=== PATIENT | female | born 1985 | race Caucasian/White ===

== ENCOUNTER 2020-08-14 09:26 | Outpatient (REF) | payer OTHER, SELFPAY ==
[2020-08-14 10:11] LABS: Estimated Average Glucose 249 mg/dL; Hemoglobin A1c % 10.3 %
[2020-08-14 10:24] LABS: Creatinine Urine 191.76 mg/dL; Microalbum/Creatinine Ratio Ur 141.8 ug/mg cr
[2020-08-14 10:26] LABS: Alanine Aminotransferase 34 U/L (0-31); Alkaline Phosphatase 63 U/L (39-117); Anion Gap 13 (12-20); Aspartate Amino Transferase 16 U/L (5-31); Bilirubin Total 0.6 mg/dL (0.0-1.0); Blood Urea Nitrogen 13 mg/dL (9-16); Calcium 8.6 mg/dL (8.4-10.2); Carbon Dioxide 22 mmol/L (22-29); Chloride 107 mmol/L (96-108); Cholesterol 170 mg/dL; Estimated Glomerular Filt Rate > 60; Glucose Fasting 263 mg/dL (60-99); HDL Cholesterol 51 mg/dL; LDL Cholesterol Calculated 104 mg/dl; Potassium 4.2 mmol/L (3.3-5.1); Sodium 138 mmol/L (135-145); Total Protein 6.6 g/dL (6.5-8.0); Triglycerides 78 mg/dL
[2020-08-14 10:49] LABS: Thyroid Stimulating Hormone 0.54 uIU/mL (0.32-4.0)
== END 2020-08-14 09:27 | disposition home or self-care (01) ==
LOC: HO.LAB 09:26
PROVIDERS: Visit Provider Internal Medicine
DX: E11.9 Type 2 diabetes mellitus without complications (principal); E03.9 Hypothyroidism, unspecified
CPT/HCPCS: 36415; 80053; 80061; 82043; 83036; 84443

== ENCOUNTER 2021-08-09 08:21 | Outpatient (REF) | payer OTHER, SELFPAY ==
[2021-08-09 09:43] LABS: MANUAL DIFF FLAG NO
[2021-08-09 09:58] LABS: Basophils Percent Auto 0.4 % (0-2); Eosinophils Absolute Auto 0.2 X10*3/uL (0.0-0.4); Hemoglobin 14.1 g/dl (12.0-16.0); Imm Gran Abs Auto 0.01 X10*3/uL (0.00-0.03); Imm Gran Pct Auto 0.2 % (0.0-0.4); Lymphocytes Absolute Auto 1.7 X10*3/uL (1.2-4.9); Lymphocytes Percent Auto 37.5 % (20-40); Mean Corpuscular HGB Conc 34.4 g/dl (31.0-35.0); Mean Corpuscular Hemoglobin 30.2 pg (27.0-33.0); Mean Corpuscular Volume 87.8 fL (80.0-98.0); Mean Platelet Volume 9.9 fL (9.4-12.3); Monocytes Absolute Auto 0.4 X10*3/uL (0.1-1.2); Monocytes Percent Auto 7.8 % (2-11); Neutrophils Absolute Auto 2.3 x10*3/uL (2.0-8.3); Neutrophils Percent Auto 49.1 % (45-73); Platelet Count 239 X10*3/uL (160-400); Red Blood Count 4.67 X10*6/uL (4.20-5.50); Red Cell Distribution Width 13.4 % (11.0-16.0); White Blood Count 4.6 X10*3/uL (4.8-10.8)
[2021-08-09 10:09] LABS: Estimated Average Glucose 217 mg/dL; Hemoglobin A1c % 9.2 %
[2021-08-09 10:26] LABS: Alanine Aminotransferase 42 U/L (0-31); Albumin Level 3.9 g/dL (3.5-5.0); Alkaline Phosphatase 62 U/L (39-117); Anion Gap 11 (12-20); Aspartate Amino Transferase 24 U/L (5-31); Bilirubin Total 0.4 mg/dL (0.0-1.0); Blood Urea Nitrogen 11 mg/dL (9-16); Carbon Dioxide 22 mmol/L (22-29); Chloride 108 mmol/L (96-108); Cholesterol 173 mg/dL; Estimated Glomerular Filt Rate > 60; Glucose Random 252 mg/dL (60-115); HDL Cholesterol 51 mg/dL; LDL Cholesterol Calculated 108 mg/dl; Potassium 4.4 mmol/L (3.3-5.1); Sodium 137 mmol/L (135-145); Triglycerides 74 mg/dL
[2021-08-09 10:49] LABS: Thyroid Stimulating Hormone 0.85 uIU/mL (0.32-4.0)
[2021-08-13 13:46] LABS: Vitamin D 25-OH, D2 <4 ng/mL; Vitamin D 25-OH, D3 8 ng/mL; Vitamin D 25-OH, Total 8 ng/mL (30-100)
== END 2021-08-09 08:22 | disposition home or self-care (01) ==
LOC: HO.LAB 08:21
PROVIDERS: PCP Hospitalist; Visit Provider Physician Assistant
DX: K76.0 Fatty (change of) liver, not elsewhere classified (principal); K64.9 Unspecified hemorrhoids; K62.5 Hemorrhage of anus and rectum; K59.09 Other constipation; E11.9 Type 2 diabetes mellitus without complications
CPT/HCPCS: 36415; 80053; 80061; 82306; 83036; 84443; 85025

== ENCOUNTER → 2021-08-10 16:14 | Outpatient (BNVA) | payer OTHER, SELFPAY | PROVIDERS: PCP Hospitalist; Referring Provider Physician Assistant; Visit Provider Surgery | DX: K64.9 Unspecified hemorrhoids (principal) | CPT/HCPCS: 46600 ==

== ENCOUNTER 2021-08-12 11:24 | Outpatient (REF) | payer OTHER, SELFPAY | END 2021-08-12 11:25 | disposition home or self-care (01) | LOC: HO.LNP 11:24 | PROVIDERS: Visit Provider Physician Assistant | DX: A04.8 Other specified bacterial intestinal infections (principal) | CPT/HCPCS: 87338 ==

== ENCOUNTER 2021-09-27 05:57 | Day surgery (SDC) | payer OTHER, SELFPAY ==
--- NOTE | 2021-09-26 08:13 | HO.ANESPROP2 ---
Documented by User: Cheyenne Brian NP 09/26/21 08:14 HPI - Anesthesia Eval Consult details Narrative: 36yo F for EUA, Hemorrhoidectomy PMFSH Active Problems Active Problems: All Active Problems (Updated 09/01/21 @ 08:51 by Tenisha Burns NP) Fungal rash of torso (Acute) Elevated BP without diagnosis of hypertension (Acute) Normal physical exam (Acute) Bleeding hemorrhoids (Acute) Hemorrhoids (Acute) Rectal bleeding (Acute) Diabetes mellitus (Acute) Past Medical History Medical History Bleeding hemorrhoids delivery delivered Diabetes mellitus Hemorrhoids Rectal bleeding Family History Family History Mother Diabetes Hypertension Chronic asthma Father Diabetes Thyroid disease Surgical History Surgical History History of tubal ligation Social History Social History Alcohol intake: current Alcohol intake frequency: holidays/special occasions only Patient Tobacco Use Status: Never used Tobacco e-Cigarette/Vaping Use: Never Used Use of substances other than those prescribed or required for medical reasons: No Are you DNR?: No Advance Directives: No Advance Directives Information Provided: Yes Patient : No service: No Current occupational status: employed Current occupation: [employer] Current occupational exposures/hazards: No Cognitive needs: No Hearing needs: No Vision needs: No Meds Allergies Allergy/AdvReac Type Severity Reaction Status Date / Time sumatriptan Allergy Intermediate palpations Verified 09/01/21 08:13 and light headedness a rectal cream (fissure) she Allergy Severe tightness Uncoded 09/01/21 08:13 s in chest Home Medications Medication Instructions Recorded Confirmed Last Taken Type lancets 28 gauge #100 ea 08/11/20 08/10/21 Unknown History Exam Exam Date and Time: September 26, [id number] Pertinent Lab Results Pertinent Lab Results: Laboratory Tests 08/09/21 08/09/21 09:42 09:42 WBC 4.6 L Hgb 14.1 Hct 41.0 Plt Count 239 Sodium 137 Potassium 4.4 Chloride 108 Carbon Dioxide 22 BUN 11 Creatinine 0.71 Assessment and Plan Assessment Anesthesia Assessment: Chart Reviewed Documented by User: Jason Montana MD 09/27/21 07:25 PMF Past Medical History Medical History Bleeding hemorrhoids delivery delivered Diabetes mellitus Hemorrhoids Rectal bleeding Patient : No Family History Family History Mother Diabetes Hypertension Chronic asthma Father Diabetes Thyroid disease Family history of problems with anesthesia: No Surgical History Surgical History History of tubal ligation History of Problems with Anesthesia: No Social History Social History Alcohol intake: current Alcohol intake frequency: holidays/special occasions only Patient Tobacco Use Status: Never used Tobacco e-Cigarette/Vaping Use: Never Used Use of substances other than those prescribed or required for medical reasons: No Are you DNR?: No Advance Directives: No Advance Directives Information Provided: Yes Patient : No service: No Current occupational status: employed Current occupation: [employer] Current occupational exposures/hazards: No Cognitive needs: No Hearing needs: No Vision needs: No Meds Allergies Allergy/AdvReac Type Severity Reaction Status Date / Time sumatriptan Allergy Intermediate palpations Verified 09/01/21 08:13 and light headedness a rectal cream (fissure) she Allergy Severe tightness Uncoded 09/01/21 08:13 s in chest Home Medications Medication Instructions Recorded Confirmed Last Taken Type lancets 28 gauge #100 ea 08/11/20 08/10/21 Unknown History Exam Airway Mallampati Class: I TM Dist: >3cm Neck ROM: Full Loose/Missing/Broken Teeth: No Heart: ok Lungs: ok Assessment and Plan Final Anesthetic Review Family History of Problems with Anesthesia: No History of Problems with Anesthesia: No ASA Class: II Final Preanesthetic Review: No Changes in Pt Med Stat, Meds/Allgs Chart Reviewed, Consent Obtained/Reviewed and Anes Risks/Benef Reviewed Patient Risk: Intermediate Procedure Risk: Intermediate Anesthetic Plan Anesthetic Plan: GA and Agree w/ Assess. and Plan Disposition: Standard PACU
[2021-09-27] VITALS (10 sets, daily range): BP systolic 144–179; BP diastolic 92–128; PULSE 73–95; RESP 16–20; TEMP 36.3–36.4; O2SAT 96–100; BMI 39.9
[2021-09-27 06:29] LABS: Glucose, Whole Blood 253 mg/dL (60-115)
[2021-09-27] MEDS: Lactated Ringers 1,000 ML 100 ML IVCONT (06:43)
--- NOTE | 2021-09-27 07:17 | MHC.SHP ---
Pre-Procedural Eval Section A Date of Service: 09/27/21 Section B Chief Complaint: Bleeding hemorrhoids Details of Present Illness: has has bleeding hemorrhoids for many years Relevant Family History (Specify if Yes): No Relevant Social History: None Present Medications: see Short Stay Collaborative assessment Medical History: No relevant PMH History of Previous Operations: No relevant previous surgery Allergies: Allergies Allergy/AdvReac Type Severity Reaction Status Date / Time sumatriptan Allergy Intermediate palpations Verified 09/01/21 08:13 and light headedness a rectal cream (fissure) she Allergy Severe tightness Uncoded 09/01/21 08:13 s in chest Review of Systems Sugical H&P ROS: Negative: Constitution, Cardiovascular, Respiratory, Neurological, Psychiatric, Hem-Onc, Allergic/Immunologic, Gastrointestinal, Genitourinary, Musculoskeletal, Integumentary, Endocrine and Eyes/Ears/Nose/Throat Exam Surgical H&P Exam: Normal: HEENT, Normal: Heart, Normal: Lungs, Normal: Extremities, Normal: Abdomen, Normal: Skin and Normal: Neurological Exam Comment: has bulky internal and external hemorrhoids, left and right Plan Diagnosis/Plan: Unchanged I have reviewed the history and physical and performed a pertinent physical examination on my patient. No changes have occurred unless specified.
--- NOTE | 2021-09-27 08:25 | W.PM.OPN ---
Operative Note Operative Note Date of Service: 09/27/21 Narrative: Preop diagnosis: bleeding hemorrhoids, internal external Postop diagnosis: The same Procedure: Exam under anesthesia, hemorrhoidectomy x2 columns Surgeon: Lexx Schaefer MD Asst: ASHLI Peterson student the patient is a 36-year-old female who has had many years of problematic hemorrhoids, with frequent bleeding and pain. Examination in the office showed bulky internal external hemorrhoids on both the left and the right side. She wanted to proceed with hemorrhoidectomy. She understood the technique of the procedure. She was aware of the risks, benefits, and alternatives She was brought to the operating room. She was placed in prone sagar-knife position under general anesthesia via laryngeal mask airway. The buttocks were retracted with wide tape laterally. The perianal areas prepped and draped in the usual sterile fashion. Examination of the anal orifice showed bulky external hemorrhoidal columns on the left and the right side. I inserted the Delilah Cheung retractor. I examined the anal canal circumferentially. Again bulky columns were noted and were mostly a mix of both internal external but mostly external columns. I applied a Calixto grasper at the hemorrhoidal column on the left. I made a itvbmj-lt-psxnw stitch at the pedicle using chromic 3-0. I made an incision around this hemorrhoidal column to the perianal skin using blade 15. I excised this hemorrhoidal column above the plane of sphincters along this incision using Metzenbaum scissors. This was sent as specimen. I closed the incision with a running chromic 3-0 stitch with additional [id number] hemostatic sutures being placed. I then proceeded to retract the hemorrhoidal column on the side with a Calixto grasper. I made a figure of stitch at the pedicle using chromic 3-0 and made incision around this using a blade 15. I excised this hemorrhoidal column above the plane of sphincters using scissors as well along this incision. I closed this incision with a running chromic 3-0 stitch with multiple additional hemostatic sutures being placed as well . Once hemostasis was ensured, I proceeded to then apply a rolled Gelfoam into the anal canal as a packing. I infiltrated the perianal area with Marcaine 0.5% for postop analgesia. She the procedure was then completed The patient tolerated procedure well. There were no complications noted. Initial fine counts of sponges and instruments were correct. Estimated blood loss was about 75 cc . The patient was extubated without difficulty and transferred to the recovery room with stable vital signs. Please note that the patient had other hemorrhoidal columns as well but in view of the risk of stenosis with further hemorrhoidectomy, I had left this smaller hemorrhoid columns in place.
--- NOTE | 2021-09-27 08:31 | W.PM.OPN ---
Operative Note Operative Note Date of Service: 09/27/21 Narrative: Preop diagnosis: Bleeding hemorrhoids, internal external Postop diagnosis the same Procedure: Exam under anesthesia hemorrhoidectomy x2 columns Surgeon: Lexx Schaefer MD Activities Leader : ASHLI Peterson student The patient is a 36 year female with a long history of problematic hemorrhoids with pain and frequent bleeding. She understood the technique of an ectomy. She was ordered risks, benefits, and alternatives She was brought to the operating room and placed in prone sagar-knife position under general anesthesia via laryngeal mask airway. The buttocks were retracted with wide tape laterally. The perianal areas prepped draped usual sterile fashion. The perianal area was also infiltrated with lidocaine 1%. Examination of the anal orifice revealed bulky external hemorrhoidal columns both the left and right side. I inserted the Delilah Cheung retractor. I examined the anal canal circumferentially. Again, she was note of bulky mixed hemorrhoidal columns on both the left and right side, mostly external. There were no other lesions seen. There was no fissure. I applied a Calixto grasper at the hemorrhoidal column on the left to retract this. I made a sfedqy-tu-shcor stitch at the pedicle using chromic 3-0. I made an incision around this hemorrhoidal column to the perianal skin using blade 15 and excised this hemorrhoidal column above the plane of the sphincters along this incision using a Metzenbaum scissors. I closed this incision with a running chromic 3-0 stitch with additional [id number] hemostatic sutures being placed I then retracted the hemorrhoidal column on the right and made a zogffw-ea-xfozr stitch at the pedicle using chromic 3-0. I made an incision around this hemorrhoidal column to the perianal skin using blade 15. And excised this above the plane of sphincters using scissors. I closed the incision with a running chromic 3-0 stitch. Additional hemostatic sutures were placed. Once hemostasis was ensured, I proceeded to infiltrate the perianal area with Marcaine 0.5% for postop analgesia. A rolled Gelfoam packing was placed in the anal canal The procedure was then completed. The patient tolerated procedure well. There were no complications noted. Initial final counts of sponges and instruments were correct. Estimated blood loss about 75 cc. The patient was extubated without difficulty and transferred to the recovery room with stable vital signs. It is noted the patient still had residual hemorrhoidal columns. However I did not remove these other columns in view of the risk of stenosis.
[2021-09-27] MEDS: fentaNYL citrate/PF 100 MCG/2 ML VIAL 50 MCG IVPUSH ×2 (08:34→08:39)
[2021-09-27] MEDS: fentaNYL citrate/PF 100 MCG/2 ML VIAL 25 MCG IVPUSH ×3 (08:44→09:23)
[2021-09-27] MEDS: oxyCODONE HCl Immed Release 5 MG TABLET PO (08:44)
[2021-09-27] MEDS: Acetaminophen 325 MG TABLET 650 MG PO (08:45)
== END 2021-09-27 09:56 | disposition home or self-care (01) ==
PROVIDERS: PCP Hospitalist; Visit Provider Surgery
PROC: (CPT 46260; principal; 2021-09-27 07:30)
DX: K64.8 Other hemorrhoids (principal); K64.4 Residual hemorrhoidal skin tags; E11.9 Type 2 diabetes mellitus without complications; R03.0 Elevated blood-pressure reading, without diagnosis of hypertension; E66.01 Morbid (severe) obesity due to excess calories; B36.9 Superficial mycosis, unspecified; Z68.41 Body mass index [BMI] 40.0-44.9, adult; Z79.84 Long term (current) use of oral hypoglycemic drugs; Z88.8 Allergy status to other drugs, medicaments and biological substances
CPT/HCPCS: 46260; 82947; 88304; J1100; J1885; J2250; J2405; J3010

== ENCOUNTER 2021-10-02 13:25 | Inpatient (IN) | payer OTHER, SELFPAY ==
--- NOTE | ~2021-10-02 | CT_ITS ---
EXAMINATION: CT BRAIN AND CT LUMBAR SPINE. CLINICAL INFORMATION: Dizziness and bilateral leg numbness. COMPARISON: None TECHNIQUE: 5 mm thin axial and reformatted 2 mm thin sagittal coronal images of brain were obtained. Axial 2 mm thin and reformatted 2 minutes thin sagittal coronal images of lumbar spine were obtained. DLP 995 FINDINGS: BRAIN: There is no acute intra-axial, extra-axial bleed, masses or midline shift. There is no acute infarction or edema. The lateral ventricles are symmetrical in size and configuration without enlargement. The wells to white matter difference is maintained normal. Bone windows reveal no calvarial abnormality. There is a large polyp/retention cyst right and small polyp or retention cyst left maxillary sinuses. Rest the paranasal sinuses are well-aerated. LUMBAR SPINE: There is normal lumbar lordosis. The vertebral heights, alignment and disc heights are normal. There is no visible disc bulge, herniation or spinal canal stenosis at any of the disc levels. The neural foramina are patent at all disc levels. There is no visible lytic or sclerotic process. The paravertebral soft tissues are normal. CT/CT lumbar spine w con IMPRESSION: No acute intracranial process seen. Unremarkable CT lumbar spine exam
--- NOTE | ~2021-10-02 | CT_ITS ---
EXAMINATION: CT BRAIN AND CT LUMBAR SPINE. CLINICAL INFORMATION: Dizziness and bilateral leg numbness. COMPARISON: None TECHNIQUE: 5 mm thin axial and reformatted 2 mm thin sagittal coronal images of brain were obtained. Axial 2 mm thin and reformatted 2 minutes thin sagittal coronal images of lumbar spine were obtained. DLP 995 FINDINGS: BRAIN: There is no acute intra-axial, extra-axial bleed, masses or midline shift. There is no acute infarction or edema. The lateral ventricles are symmetrical in size and configuration without enlargement. The wells to white matter difference is maintained normal. Bone windows reveal no calvarial abnormality. There is a large polyp/retention cyst right and small polyp or retention cyst left maxillary sinuses. Rest the paranasal sinuses are well-aerated. LUMBAR SPINE: There is normal lumbar lordosis. The vertebral heights, alignment and disc heights are normal. There is no visible disc bulge, herniation or spinal canal stenosis at any of the disc levels. The neural foramina are patent at all disc levels. There is no visible lytic or sclerotic process. The paravertebral soft tissues are normal. CT/CT head/brain wo con IMPRESSION: No acute intracranial process seen. Unremarkable CT lumbar spine exam
[2021-10-02 14:13] VITALS: BP 156/112; PULSE 103; RESP 18; TEMP 37.3; O2SAT 97; BMI 39.9
--- NOTE | 2021-10-02 15:42 | PC.NURSE ---
dr karin, general surgeon, can be reached by tiger text. is checking in about pt presentation and hoping that pt be given a bed soon.
[2021-10-02 18:12] VITALS: BP 162/106; PULSE 96; RESP 16; O2SAT 96
--- NOTE | 2021-10-02 18:17 | ECG_ITS ---
Test Reason : weakness Blood Pressure : / mmHG Vent. Rate : 103 BPM Atrial Rate : 103 BPM P-R Int : 124 ms QRS Dur : 080 ms QT Int : 332 ms P-R-T Axes : 013 035 041 degrees QTc Int : 434 ms Sinus tachycardia Otherwise normal ECG No previous ECGs available Referred By: Aide Billy Electronically Signed By:Minesh Jimenez
--- NOTE | 2021-10-02 18:18 | ED.GENADULT ---
HPI - General Adult General Chief complaint: Extremity Injury, Lower Stated complaint: both leg numbness Time Seen by Provider: 10/02/21 15:52 Source: patient Mode of arrival: ambulatory Limitations: no limitations History of Present Illness HPI narrative: This is a 36-year-old female past medical history significant for diabetes presenting to the emergency department with complaints of bilateral lower extremity numbness worse on the right-hand side better on the left X 2 days worsening. Patient had a hemorrhoidectomy under general anesthesia on September 28, without complications. She tells me that it was not until September 30 that she started experiencing numbness to bilateral lower extremities, severe. She reports it is so severe that she cannot ambulate steadily as she feels like she is going to fall over as she cannot feel her feet. She tells me that it is from the hip down to the toes. She tells me she feels like when she is walking she is dragging her feet, she reports weakness from the hip down. This weakness is progressive in each day she becomes more and more weak. This has never happened to her. Patient denies any recent immunizations other than her COVID vaccine. No flu shot. She denies any tick-borne illnesses/tick bites. No history of Lyme disease. Patient has had an epidural when she had children however this was not recently. She tells me that she is constipated but she thinks it is secondary to the pain/discomfort after did the hemorrhoidectomy however she is still having the urge to defecate. She is having normal urination, she has not had any series of incontinence. She denies tingling, chest pain, shortness of breath, fevers, headache, dizziness, nausea, vomiting. To patient's knowledge she has no conditions that make her immunosuppressed. Onset (ago): day(s) (2) Location: lower extremity Radiation: non-radiation Severity: severe Severity scale (1-10): 10 Pain Consistency: constant Relieving factors: none Exacerbating factors: none Associated symptoms: denies other symptoms Treatments prior to arrival: none Related Data Home Medications Medication Instructions Recorded Confirmed lancets 28 gauge #100 ea 08/11/20 08/10/21 clotrimazole-betamethasone 1 1 appl TOPICAL BID PRN 10/02/21 10/02/21 %-0.05 % topical cream oxycodone-acetaminophen 5 mg-325 1 tab PO Q4H PRN 10/02/21 10/02/21 mg tablet (Percocet) Previous Rx's Medication Instructions Recorded blood sugar diagnostic (FreeStyle #100 ea 09/01/21 Lite Strips) docusate sodium 100 mg capsule 100 mg PO BID #60 cap 09/27/21 (Colace) ibuprofen 600 mg tablet 600 mg PO Q6H PRN #30 tab 09/27/21 Allergies Allergy/AdvReac Type Severity Reaction Status Date / Time sumatriptan Allergy Intermediate palpations Verified 10/02/21 14:13 and light headedness a rectal cream (fissure) she Allergy Severe tightness Uncoded 09/01/21 08:13 s in chest Review of Systems Review of Systems: Constitutional : No Weight loss, No Fever, No Chills, No Fatigue, No Malaise ENT/Mouth : No sore throat, No Rhinorrhea Eyes: No Eye Pain, No Swelling, No Redness Cardiovascular : No Chest Pain, No SOB, No Dyspnea on Exertion, No Orthopnea, No Edema, No Palpitations Respiratory : No Cough, No Sputum, No Wheezing Gastrointestinal : No Nausea, No Vomiting, No Diarrhea, No Constipation, No abdominal Pain, No Hematochezia, No Melena Genitourinary : No Dysuria, No Urinary Frequency, No Hematuria, Musculoskeletal : No joint pain, No Myalgias, No Joint Swelling Skin : No Skin Lesions, No rash Neuro : + Weakness, + Numbness, No Dizziness, No Headache Psych : No Anxiety/Panic, No Depression All other systems reviewed and are negative Yes all other systems are reviewed and are negative [facility] Past Medical History Attestation statement: The following information was validated with the patient. Source: old records reviewed and nursing notes reviewed Medical History Bleeding hemorrhoids delivery delivered Diabetes mellitus Hemorrhoids Rectal bleeding Surgical History History of tubal ligation Family History Family History Mother Diabetes Hypertension Chronic asthma Father Diabetes Thyroid disease Social History Social History Alcohol intake: current Alcohol intake frequency: holidays/special occasions only Patient Tobacco Use Status: Never used Tobacco e-Cigarette/Vaping Use: Never Used Advance Directives: No Advance Directives Information Provided: No service: No Current occupational status: employed Current occupation: [employer] Current occupational exposures/hazards: No Cognitive needs: No Hearing needs: No Vision needs: No Physical Exam ED Vital Signs: Vital Signs - 24 hr 10/02/21 14:13 10/02/21 18:12 10/02/21 22:34 Temperature 99.1 F Pulse Rate 103 H 96 97 Respiratory Rate 18 16 16 Blood Pressure 156/112 H 162/106 H 140/89 H Pulse Oximetry 97 96 BMI result Body Mass Index 39.9 Patient noted to be hypertensive will recheck blood pressure. Appearance: Alert.? Oriented X3.? No acute distress.? Head: Normocephalic, atraumatic, no step-offs or deformities Eyes: Pupils equal, round and reactive to light.? ENT: Pharynx normal.? Neck: Normal inspection.? Neck supple.? CVS: Normal heart rate and rhythm.? Pulses normal.? Respiratory: No respiratory distress.? Breath sounds normal.? Abdomen: Soft and nontender.? Skin: Skin warm and dry.? Normal skin color.? Normal skin turgor.? Extremities: No lower extremity edema.? No calf ttp. 5/5 strength to bilateral upper and lower extremities Back: No midline tenderness, no C-spine tenderness, full range of motion, no CVA tenderness bilaterally Neuro: Oriented X 3.? No motor deficit.? + sensory deficit to bilateral lower extremities from the hips down worse to right lower extremity. Proprioception intact to bilateral lower extremities. Diminished reflexes bilaterally to lower extremities 1+. No saddle paresthesia. Patient is ambulating with feet dragging, unsteady gait. Course Reevaluation(s) Reevaluation #1: Spoke to pharmacy who is putting in orders for IVIG and premedication Time: 23:35 Reevaluation #2: Patient's CBC within normal limits. Platelets normal. Chemistry with no acute electrolyte abnormalities. HCG negative. Although CSF total protein is within normal limits still high suspicion for Guillain-Canton. CSF glucose 104. CSF appearance clear and colorless. Will reach out to Neurology to see if they want IVIG initiated Spoke to neurology who recommends holding IVIG until they see patient tomorrow morning, he also recommends hospital admission. At this time IVIG is at patients bedside closed, and sealed spoke to [facility] [place] [facility] who recommends leaving it at the bedside at room temperature w/o special handling. Time: 23:39 Medical Decision Making [facility] Narrative Medical decision making narrative: 1827 36 yo f presents w/ weakness and numbness to b/l LE X2 days s/p hemorrhoidectomy. Patient does not have a history of Guillain-Canton, no recent immunizations other than COVID, no tick borne illnesses that she knows of. Reports issues with her balance due to numbness to lower extremities. This numbness has been progressively worsening over the past few days. Physical examination significant for patient alert and oriented x4.? No motor deficit.? There is sensory deficit to bilateral lower extremities from the hips down worse to right lower extremity. Proprioception intact to bilateral lower extremities. Diminished reflexes (patellar and Achilles) bilaterally to lower extremities 1+. No saddle paresthesia. Patient is ambulating with feet dragging, unsteady gait. No back pain, no midline tenderness, no saddle paresthesias. Lungs clear. Regular rate and rhythm. Abdomen soft nontender nondistended. Plan at this time is basic labs, inflammatory markers, PT INR, tick-borne illness panel, UA, CT of head and brain without contrast. CT of the lumbar spine Base of patient history and physical examination high suspicion for Guillain-Canton. Unlikely that this is epidural abscess, cauda equina. Upon patient's arrival I did evaluate patient with my attending at the bedside Dr. Baker. 0.4 gm/kg/day X5 days IVIG planned Medical Records Medical records reviewed: Yes I reviewed the patient's medical records. Lab Data Lab results reviewed: Yes I reviewed the patient's lab results. Result diagrams: 10/02/21 18:53 10/02/21 18:53 Labs: Lab Results 10/02/21 10/02/21 10/02/21 Range/Units 18:52 18:52 18:53 WBC 7.2 (4.8-10.8) X10*3/uL RBC 4.67 (4.20-5.50) X10*6/uL Hgb 14.4 (12.0-16.0) g/dl Hct 40.9 (37.0-47.0) % MCV 87.6 (80.0-98.0) fL MCH 30.8 (27.0-33.0) pg MCHC 35.2 H (31.0-35.0) g/dl RDW 13.2 (11.0-16.0) % Plt Count 237 (160-400) X10*3/uL MPV 9.5 (9.4-12.3) fL Immature Gran % (Auto) 0.4 (0.0-0.4) % Neut % (Auto) 63.7 (45-73) % Lymph % (Auto) 22.5 (20-40) % [place] % (Auto) 9.7 (2-11) % Eos % (Auto) 3.6 (0-4) % Baso % (Auto) 0.1 (0-2) % Lymph # (Auto) 1.6 (1.2-4.9) X10*3/uL [place] # (Auto) 0.7 (0.1-1.2) X10*3/uL Eos # (Auto) 0.3 (0.0-0.4) X10*3/uL Baso # (Auto) 0.0 (0.0-0.2) X10*3/uL Abs Immat Gran (auto) 0.03 (0.00-0.03) X10*3/uL Absolute Neuts (auto) 4.6 (2.0-8.3) x10*3/uL Absolute Nucleated RBC 0.000 (0.0-0.012) X10*3/uL Nucleated RBC % (auto) 0.0 (0.0-0.2) /100WBC ESR 19 (0-20) MM/HR PT 13.1 H (9.9-13.0) SEC INR 1.2 H (0.9-1.1) Sodium (135-145) mmol/L Potassium (3.3-5.1) mmol/L Chloride (96-108) mmol/L Carbon Dioxide (22-29) mmol/L Anion Gap (12-20) BUN (9-16) mg/dL Creatinine (0.5-1.4) mg/dL Estim Creat Clear Calc Estimated GFR Random Glucose (60-115) mg/dL Calcium (8.4-10.2) mg/dL Magnesium (1.6-2.6) mg/dL Total Bilirubin (0.0-1.0) mg/dL AST (5-31) U/L ALT (0-31) U/L Alkaline Phosphatase (39-117) U/L C-Reactive Protein (< or = 0.50) mg/dL Total Protein (6.5-8.0) g/dL Albumin (3.5-5.0) g/dL Beta HCG, Quant mIU/mL Urine Color Urine Appearance Urine pH (5.0-8.0) Ur Specific Larose (1.005-1.025) Urine Protein (NEG-TRACE) MG/DL Urine Glucose (UA) (NEG) MG/DL Urine Ketones (NEG) MG/DL Urine Blood (NEG) Urine Nitrite (NEG) Ur Leukocyte Esterase (NEG) Urine RBC (0) /HPF Urine WBC (0-4) /HPF Ur Squamous Epith Cells /LPF Urine Bacteria /LPF CSF Tube Number CSF Volume ML CSF Appearance CSF Color CSF WBC MM*3 CSF RBC MM*3 CSF Lymphocytes % CSF Appearance (b) CSF Glucose mg/dL CSF Total Protein (15-45) mg/dL COVID-19 (JAYESH) (Negative) COVID-19 Clin Com 10/02/21 10/02/21 10/02/21 Range/Units 18:53 18:53 22:32 WBC (4.8-10.8) X10*3/uL RBC (4.20-5.50) X10*6/uL Hgb (12.0-16.0) g/dl Hct (37.0-47.0) % MCV (80.0-98.0) fL MCH (27.0-33.0) pg MCHC (31.0-35.0) g/dl RDW (11.0-16.0) % Plt Count (160-400) X10*3/uL MPV (9.4-12.3) fL Immature Gran % (Auto) (0.0-0.4) % Neut % (Auto) (45-73) % Lymph % (Auto) (20-40) % [place] % (Auto) (2-11) % Eos % (Auto) (0-4) % Baso % (Auto) (0-2) % Lymph # (Auto) (1.2-4.9) X10*3/uL [place] # (Auto) (0.1-1.2) X10*3/uL Eos # (Auto) (0.0-0.4) X10*3/uL Baso # (Auto) (0.0-0.2) X10*3/uL Abs Immat Gran (auto) (0.00-0.03) X10*3/uL Absolute Neuts (auto) (2.0-8.3) x10*3/uL Absolute Nucleated RBC (0.0-0.012) X10*3/uL Nucleated RBC % (auto) (0.0-0.2) /100WBC ESR (0-20) MM/HR PT (9.9-13.0) SEC INR (0.9-1.1) Sodium 138 (135-145) mmol/L Potassium 3.7 (3.3-5.1) mmol/L Chloride 106 (96-108) mmol/L Carbon Dioxide 20 L (22-29) mmol/L Anion Gap 16 (12-20) BUN 12 (9-16) mg/dL Creatinine 0.67 (0.5-1.4) mg/dL Estim Creat Clear Calc 143.8 Estimated GFR > 60 Random Glucose 174 H (60-115) mg/dL Calcium 9.0 (8.4-10.2) mg/dL Magnesium 2.1 (1.6-2.6) mg/dL Total Bilirubin 0.5 (0.0-1.0) mg/dL AST 17 (5-31) U/L ALT 27 (0-31) U/L Alkaline Phosphatase 59 (39-117) U/L C-Reactive Protein 1.67 H (< or = 0.50) mg/dL Total Protein 7.0 (6.5-8.0) g/dL Albumin 4.0 (3.5-5.0) g/dL Beta HCG, Quant < 2 mIU/mL Urine Color YELLOW Urine Appearance CLEAR Urine pH 6.5 (5.0-8.0) Ur Specific Larose 1.010 (1.005-1.025) Urine Protein NEG (NEG-TRACE) MG/DL Urine Glucose (UA) 100 H (NEG) MG/DL Urine Ketones 40 (NEG) MG/DL Urine Blood 3+ H (NEG) Urine Nitrite NEG (NEG) Ur Leukocyte Esterase NEG (NEG) Urine RBC 1-4 (0) /HPF Urine WBC 1-4 (0-4) /HPF Ur Squamous Epith Cells TRACE /LPF Urine Bacteria TRACE /LPF CSF Tube Number CSF Volume ML CSF Appearance CSF Color CSF WBC MM*3 CSF RBC MM*3 CSF Lymphocytes % CSF Appearance (b) CSF Glucose mg/dL CSF Total Protein (15-45) mg/dL COVID-19 (JAYESH) Negative (Negative) COVID-19 Clin Com See Note 10/02/21 10/02/21 Range/Units 22:32 22:32 WBC (4.8-10.8) X10*3/uL RBC (4.20-5.50) X10*6/uL Hgb (12.0-16.0) g/dl Hct (37.0-47.0) % MCV (80.0-98.0) fL MCH (27.0-33.0) pg MCHC (31.0-35.0) g/dl RDW (11.0-16.0) % Plt Count (160-400) X10*3/uL MPV (9.4-12.3) fL Immature Gran % (Auto) (0.0-0.4) % Neut % (Auto) (45-73) % Lymph % (Auto) (20-40) % [place] % (Auto) (2-11) % Eos % (Auto) (0-4) % Baso % (Auto) (0-2) % Lymph # (Auto) (1.2-4.9) X10*3/uL [place] # (Auto) (0.1-1.2) X10*3/uL Eos # (Auto) (0.0-0.4) X10*3/uL Baso # (Auto) (0.0-0.2) X10*3/uL Abs Immat Gran (auto) (0.00-0.03) X10*3/uL Absolute Neuts (auto) (2.0-8.3) x10*3/uL Absolute Nucleated RBC (0.0-0.012) X10*3/uL Nucleated RBC % (auto) (0.0-0.2) /100WBC ESR (0-20) MM/HR PT (9.9-13.0) SEC INR (0.9-1.1) Sodium (135-145) mmol/L Potassium (3.3-5.1) mmol/L Chloride (96-108) mmol/L Carbon Dioxide (22-29) mmol/L Anion Gap (12-20) BUN (9-16) mg/dL Creatinine (0.5-1.4) mg/dL Estim Creat Clear Calc Estimated GFR Random Glucose (60-115) mg/dL Calcium (8.4-10.2) mg/dL Magnesium (1.6-2.6) mg/dL Total Bilirubin (0.0-1.0) mg/dL AST (5-31) U/L ALT (0-31) U/L Alkaline Phosphatase (39-117) U/L C-Reactive Protein (< or = 0.50) mg/dL Total Protein (6.5-8.0) g/dL Albumin (3.5-5.0) g/dL Beta HCG, Quant mIU/mL Urine Color Urine Appearance Urine pH (5.0-8.0) Ur Specific Larose (1.005-1.025) Urine Protein (NEG-TRACE) MG/DL Urine Glucose (UA) (NEG) MG/DL Urine Ketones (NEG) MG/DL Urine Blood (NEG) Urine Nitrite (NEG) Ur Leukocyte Esterase (NEG) Urine RBC (0) /HPF Urine WBC (0-4) /HPF Ur Squamous Epith Cells /LPF Urine Bacteria /LPF CSF Tube Number 1 4 CSF Volume 1.0 ML CSF Appearance CLEAR CSF Color COLORLESS CSF WBC 4 MM*3 CSF RBC 0 MM*3 CSF Lymphocytes 100 % CSF Appearance (b) Clear, Colorless CSF Glucose 104 mg/dL CSF Total Protein 28.7 (15-45) mg/dL COVID-19 (JAYESH) (Negative) COVID-19 Clin Com ECG Data Attestation: I personally reviewed and interpreted this ECG as follows: Prior ECG tracings: not available for review Interpretation: Ventricular rate of 103, NH normal, QT/QTC normal. EKG shows sinus tachycardia no ST elevations or inversions concerning for ischemia. No previous to compare with. Critical Care Time Critical Care Time Critical Care Time: No Discharge Plan Discharge Clinical Impression: Guillain-Canton, Lower extremity numbness, Weakness Patient Disposition: Admitted As Inpatient
--- NOTE | 2021-10-02 18:32 | PHA.MEDREC ---
Pharmacy Consult ? Medication Reconciliation Pharmacy has completed the medication reconciliation. Pt stated that she has not been taking her metformin (500mg TID) for a while. Otherwise no remarkable issues. Hiwot Jones, PharmD
[2021-10-02 19:01] LABS: MANUAL DIFF FLAG NO
[2021-10-02 19:05] LABS: Basophils Percent Auto 0.1 % (0-2); Eosinophils Absolute Auto 0.3 X10*3/uL (0.0-0.4); Eosinophils Percent Auto 3.6 % (0-4); Hematocrit 40.9 % (37.0-47.0); Hemoglobin 14.4 g/dl (12.0-16.0); Imm Gran Abs Auto 0.03 X10*3/uL (0.00-0.03); Imm Gran Pct Auto 0.4 % (0.0-0.4); Lymphocytes Absolute Auto 1.6 X10*3/uL (1.2-4.9); Lymphocytes Percent Auto 22.5 % (20-40); Mean Corpuscular HGB Conc 35.2 g/dl (31.0-35.0); Mean Corpuscular Hemoglobin 30.8 pg (27.0-33.0); Mean Corpuscular Volume 87.6 fL (80.0-98.0); Mean Platelet Volume 9.5 fL (9.4-12.3); Monocytes Absolute Auto 0.7 X10*3/uL (0.1-1.2); Monocytes Percent Auto 9.7 % (2-11); Neutrophils Absolute Auto 4.6 x10*3/uL (2.0-8.3); Neutrophils Percent Auto 63.7 % (45-73); Platelet Count 237 X10*3/uL (160-400); Red Blood Count 4.67 X10*6/uL (4.20-5.50); Red Cell Distribution Width 13.2 % (11.0-16.0); White Blood Count 7.2 X10*3/uL (4.8-10.8)
[2021-10-02 19:08] LABS: INTERNATIONAL NORM RATIO 1.2 (0.9-1.1); Prothrombin Time 13.1 SEC (9.9-13.0)
[2021-10-02 19:17] LABS: COVID-19 Test Negative (Negative); IDNOW Serial# 55D5AD1C
[2021-10-02 19:20] LABS: Alanine Aminotransferase 27 U/L (0-31); Alkaline Phosphatase 59 U/L (39-117); Anion Gap 16 (12-20); Aspartate Amino Transferase 17 U/L (5-31); Bilirubin Total 0.5 mg/dL (0.0-1.0); Blood Urea Nitrogen 12 mg/dL (9-16); C Reactive Protein 1.67 mg/dL (< or = 0.50); Carbon Dioxide 20 mmol/L (22-29); Chloride 106 mmol/L (96-108); Creatinine Clr Calc Pharmacy 143.8; Estimated Glomerular Filt Rate > 60; Glucose Random 174 mg/dL (60-115); Magnesium 2.1 mg/dL (1.6-2.6); Potassium 3.7 mmol/L (3.3-5.1); Sodium 138 mmol/L (135-145)
[2021-10-02] MEDS: Morphine Sulfate 4 MG/ML CARTRIDGE IVPUSH (19:36)
[2021-10-02 19:38] LABS: Erythrocyte Sedimentation Rate 19 MM/HR (0-20)
[2021-10-02 20:00] LABS: HCG Quantitative < 2 mIU/mL
[2021-10-02] MEDS: iohexoL 350 MG/ML 100 ML INFUS..BTL 85 ML IV (20:57)
--- NOTE | 2021-10-02 20:59 | PC.NURSE ---
pt a&o, no sob or chest pain. Medicated per pain. Will continue to monitor.
--- NOTE | 2021-10-02 21:47 | PC.NURSE ---
ua collected and sent.
[2021-10-02] MEDS: 0.9 % Sodium Chloride 1,000 ML 999 ML IV (22:33)
[2021-10-02 22:34] VITALS: BP 140/89; PULSE 97; RESP 16
[2021-10-02 22:42] LABS: Appearance Urine CLEAR; Color Urine YELLOW; Glucose Urine UA 100 MG/DL (NEG); Leukocyte Esterase Urine NEG (NEG); Nitrite Urine NEG (NEG); PH 6.5 (5.0-8.0); UACC Culture Trigger NO; Urine Blood 3+ (NEG); Urine Ketones 40 MG/DL (NEG); Urine Protein NEG (NEG-TRACE)
--- NOTE | 2021-10-02 22:47 | HE.PHANOTE ---
RE IVIG IVIG entered at 400mg/kg x 5 days. Used Adjusted BW of 77
[2021-10-02] MEDS: Acetaminophen 325 MG TABLET 650 MG PO (23:09)
[2021-10-02] MEDS: methylPREDNISolone Sod Succ 40 MG/ML VIAL IVPUSH (23:10)
[2021-10-02] MEDS: diphenhydrAMINE HCL 50 MG/ML VIAL 25 MG IVPUSH (23:10)
[2021-10-02 23:17] LABS: Bacteria Urine TRACE /LPF; Glucose CSF 104 mg/dL; Squamous Epithelial Cell Urine TRACE /LPF; Total Protein CSF 28.7 mg/dL (15-45)
[2021-10-02 23:25] LABS: CSF Appearance Clear, Colorless
[2021-10-02 23:26] LABS: CSF Tube # 1
--- NOTE | 2021-10-02 23:36 | PC.NURSE ---
IG medication on hold per awilda atm servicer. waiting for further ok to give which may be in the am.
--- NOTE | 2021-10-02 23:37 | P.HPHOSP_ITS ---
History of Present Illness Date of Service: 10/02/21 Chief Complaint: bl leg weakness 36-year-old female with a past medical history of diabetes, hemorrhoids status post hemorrhoidectomy on 09/27/2021; presented to the hospital today with a chief complaint of bilateral leg weakness/ numbness. patient reported that since last sunday she developed bilateral leg weakness more on the right leg and bilateral leg numbness more on the right leg; which have been gradually worsening; she felt unsteady; denies any falls or trauma. denies any headaches or blurry visions. denies any numbness or weakness in upper extremities. denies any low back pain.denies any stool incontinence or urinary retention. patient reported that few days ago she had like nasal congestion/runny nose - contracted from her daughter who had uri before. denies any gi gu symptoms. patient reports that she was not feeling ground when trying to walk and lately she was dragging her right lower extremity in order to walk. has been on study. denies any water contamination, tick bites, concerns for hiv. review of all other systems is negative except mentioned above er course: per er team patient on presentation noted to have bilateral leg decreased sensation, decreased strength in bilateral lower extremities -1/5; absent knee reflexes. concern for denzel barre syndrome. ct head and lumbar spine ct showed no acute findings. lp was done which showed no albuminocytologic dissociation. initially started on ivig. discussed with neurology who suggested to stop iv agent admitted to the hospital for further management. FOR[facility]LY [facility] Medical History Bleeding hemorrhoids delivery delivered Diabetes mellitus Hemorrhoids Rectal bleeding Family History Mother Diabetes Hypertension Chronic asthma Father Diabetes Thyroid disease Surgical History History of tubal ligation Social History Alcohol intake: current Alcohol intake frequency: holidays/special occasions only Patient Tobacco Use Status: Never used Tobacco e-Cigarette/Vaping Use: Never Used Advance Directives: No Advance Directives Information Provided: No service: No Current occupational status: employed Current occupation: [employer] Current occupational exposures/hazards: No Cognitive needs: No Hearing needs: No Vision needs: No Meds Allergies Allergy/AdvReac Type Severity Reaction Status Date / Time sumatriptan Allergy Intermediate palpations Verified 10/02/21 14:13 and light headedness a rectal cream (fissure) she Allergy Severe tightness Uncoded 09/01/21 08:13 s in chest Active Medications: Current Medications Acetaminophen (Acetaminophen 325 Mg Tablet) 650 mg PO DAILY@2300 [facility] Stop: 10/06/21 23:01 Last Admin: 10/02/21 23:09 Dose: 650 mg Documented by: Diphenhydramine HCl (Diphenhydramine Hcl 50 Mg/Ml Vial) 25 mg IVPUSH DAILY@2300 [facility] Stop: 10/06/21 23:01 Last Admin: 10/02/21 23:10 Dose: 25 mg Documented by: Immune Globulin (Gammagard 10%) 100 mls @ 38 mls/hr IV ONCE ONE Stop: 10/03/21 02:07 Immune Globulin (Gammagard 10%) 200 mls @ 38 mls/hr IV ONCE ONE Stop: 10/03/21 07:23 Immune Globulin (Gammagard 10%) 300 mls @ 38 mls/hr IV DAILY@2330 [facility] Stop: 10/07/21 07:24 Methylprednisolone Sodium Succinate (Methylprednisolone Sod Succ 40 Mg/Ml Vial) 40 mg IVPUSH DAILY@2300 [facility] Stop: 10/06/21 23:01 Last Admin: 10/02/21 23:10 Dose: 40 mg Documented by: Pharmacy Consult (Consult Rx Perform Med Rec) 1 each MISCELLANE ONCE PRN PRN Reason: Consult order Home Medications Medication Instructions Recorded Confirmed Last Taken Type lancets 28 gauge #100 ea 08/11/20 08/10/21 Unknown History clotrimazole-betamethasone 1 1 appl TOPICAL BID PRN 10/02/21 10/02/21 Unknown History %-0.05 % topical cream oxycodone-acetaminophen 5 mg-325 1 tab PO Q4H PRN 10/02/21 10/02/21 10/02/21 History mg tablet (Percocet) Physical Exam Vital Signs and Narrative: Vital Signs: Last Vital Signs Temp 99.1 F 10/02/21 14:13 Pulse 97 03/20/22 22:34 Resp 16 10/02/21 22:34 BP 140/89 H 10/02/21 22:34 Pulse Ox 96 10/02/21 18:12 BMI result Body Mass Index 39.9 GEN: APPEARS BE IN NO ACUTE DISTRESS HEENT: NCAT, MOIST [place]UC[place]. PULMONARY: VESICULAR BREATH SOUNDS, FAIR AIR ENTRY CVS: NORMAL S1-S2 ABDOMEN: BS+, SOFT, NONTENDER EXTREMITIES: WARM WELL PERFUSED NEURO: ALERT AND AWAKE. strength 5/5 in upper and lower extremities; no pronator drift. strength is equal in bilateral lower extremities at hip flexion, knee extension and flexion- 5/5. slightly decreased sensation to soft touch on bilateral lower extremities compared to the bilateral upper extremities. cranial nerves intact straight leg raise test negative no spinal tenderness knee reflexes are normal (2+) unsteady on gait [id number] test normal on both sides [id number] test -normal with the left lower extremity; but patient had difficulty performing the task with right lower extremity Results Labs CBC and Chem 7: 10/02/21 18:53 10/02/21 18:53 Labs: Laboratory Results - last 24 hr 10/02/21 10/02/21 10/02/21 18:52 18:52 18:53 MCV 87.6 MCH 30.8 MCHC 35.2 H RDW 13.2 Plt Count 237 MPV 9.5 Immature Gran % (Auto) 0.4 Neut % (Auto) 63.7 Lymph % (Auto) 22.5 [place] % (Auto) 9.7 Eos % (Auto) 3.6 Baso % (Auto) 0.1 Lymph # (Auto) 1.6 [place] # (Auto) 0.7 Eos # (Auto) 0.3 Baso # (Auto) 0.0 Abs Immat Gran (auto) 0.03 Absolute Neuts (auto) 4.6 Absolute Nucleated RBC 0.000 Nucleated RBC % (auto) 0.0 ESR 19 PT 13.1 H INR 1.2 H Anion Gap Estim Creat Clear Calc Estimated GFR Random Glucose Calcium Magnesium Total Bilirubin AST ALT Alkaline Phosphatase C-Reactive Protein Total Protein Albumin Beta HCG, Quant Urine Color Urine Appearance Urine pH Ur Specific [place] Urine Protein Urine Glucose (UA) Urine Ketones Urine Blood Urine Nitrite Ur Leukocyte Esterase Urine RBC Urine WBC Ur Squamous Epith Cells Urine Bacteria CSF Tube Number CSF Appearance (b) CSF Glucose CSF Total Protein COVID-19 (JAYESH) COVID-19 Clin Com 10/02/21 10/02/21 10/02/21 18:53 18:53 22:32 MCV MCH MCHC RDW Plt Count MPV Immature Gran % (Auto) Neut % (Auto) Lymph % (Auto) [place] % (Auto) Eos % (Auto) Baso % (Auto) Lymph # (Auto) [place] # (Auto) Eos # (Auto) Baso # (Auto) Abs Immat Gran (auto) Absolute Neuts (auto) Absolute Nucleated RBC Nucleated RBC % (auto) ESR PT INR Anion Gap 16 Estim Creat Clear Calc 143.8 Estimated GFR > 60 Random Glucose 174 H Calcium 9.0 Magnesium 2.1 Total Bilirubin 0.5 AST 17 ALT 27 Alkaline Phosphatase 59 C-Reactive Protein 1.67 H Total Protein 7.0 Albumin 4.0 Beta HCG, Quant < 2 Urine Color YELLOW Urine Appearance CLEAR Urine pH 6.5 Ur Specific [place] 1.010 Urine Protein NEG Urine Glucose (UA) 100 H Urine Ketones 40 Urine Blood 3+ H Urine Nitrite NEG Ur Leukocyte Esterase NEG Urine RBC 1-4 Urine WBC 1-4 Ur Squamous Epith Cells TRACE Urine Bacteria TRACE CSF Tube Number CSF Appearance (b) CSF Glucose CSF Total Protein COVID-19 (JAYESH) Negative COVID-19 Clin Com See Note 10/02/21 22:32 MCV MCH MCHC RDW Plt Count MPV Immature Gran % (Auto) Neut % (Auto) Lymph % (Auto) [place] % (Auto) Eos % (Auto) Baso % (Auto) Lymph # (Auto) [place] # (Auto) Eos # (Auto) Baso # (Auto) Abs Immat Gran (auto) Absolute Neuts (auto) Absolute Nucleated RBC Nucleated RBC % (auto) ESR PT INR Anion Gap Estim Creat Clear Calc Estimated GFR Random Glucose Calcium Magnesium Total Bilirubin AST ALT Alkaline Phosphatase C-Reactive Protein Total Protein Albumin Beta HCG, Quant Urine Color Urine Appearance Urine pH Ur Specific [place] Urine Protein Urine Glucose (UA) Urine Ketones Urine Blood Urine Nitrite Ur Leukocyte Esterase Urine RBC Urine WBC Ur Squamous Epith Cells Urine Bacteria CSF Tube Number 1 CSF Appearance (b) Clear, Colorless CSF Glucose 104 CSF Total Protein 28.7 COVID-19 (JAYESH) COVID-19 Clin Com Imaging Radiologist's Impressions: Impressions Head CT 10/02/21 20:58 IMPRESSION: No acute intracranial process seen. Unremarkable CT lumbar spine exam Lumbar Spine CT 10/02/21 20:58 IMPRESSION: No acute intracranial process seen. Unremarkable CT lumbar spine exam Assessment and Plan (1) Lower extremity numbness: Status: Acute (2) Diabetes mellitus: Status: Acute Plan 36-year-old female with a past medical history of diabetes, hemorrhoids status post hemorrhoidectomy on 09/27/2021; presented to the hospital today with a chief complaint of bilateral leg weakness/ numbness. bilateral leg numbness/unsteady gait: patient on presentation to the er noted to have 1/5 strength on bilateral lower extremities, decreased sensation on bilateral lower extremities; initially concern for denzel barre syndrome but patient lp showed no albuminocytologic dissociation. ct head showed no acute findings will obtain LIU, tick panel, folate, b12, b1 levels, rpr, hiv( patient verbally consented), tsh fall precautions pt/ ot eventually neurology consult history of diabetes: insulin sliding scale dvt prophylaxis: subcu heparin code status: full code Quality Stroke Does the patient have a stroke diagnosis?: No VTE Prior VTE?: No VTE Risk Level:: Medical - moderate - high VTE Device Contraindication: Treatment Not Indicated VTE Drug Contraindication: N/A - Med Ordered
[2021-10-02 23:39] LABS: Appearance CSF CLEAR; CSF Tube # 4; Color CSF COLORLESS; White Blood Cell CSF 4 MM*3
[2021-10-02 23:40] LABS: Lymphocytes CSF 100 %; Red Blood Cell CSF 0 MM*3
[2021-10-02 23:53] VITALS: BP 152/99; PULSE 84; RESP 16; TEMP 37.1; O2SAT 99
[2021-10-03] MEDS: Dextrose 5 % and 0.45 % NaCl 1,000 ML 50 ML IVCONT (01:22)
[2021-10-03] MEDS: Heparin Sodium,Porcine 5,000 UNIT/ML VIAL 5000 UNIT SUBCUT (01:24)
--- NOTE | 2021-10-03 01:34 | PC.NURSE ---
pt dressing to back is dry and intact. numbness to the leg is the same no change. pt moves all extremities.
[2021-10-03 04:35] VITALS: BP 152/108; PULSE 96; RESP 16; TEMP 37.4
--- NOTE | 2021-10-03 04:59 | PC.NURSE ---
pt ambulated to bathroom with assist due to leg numbness. pt did much better and more stable per pt . pt urninated no bm yet.
[2021-10-03 05:48] LABS: MANUAL DIFF FLAG NO
[2021-10-03 05:49] LABS: Basophils Percent Auto 0.2 % (0-2); Eosinophils Percent Auto 0.2 % (0-4); Hematocrit 39.1 % (37.0-47.0); Hemoglobin 13.5 g/dl (12.0-16.0); Imm Gran Abs Auto 0.01 X10*3/uL (0.00-0.03); Imm Gran Pct Auto 0.2 % (0.0-0.4); Lymphocytes Absolute Auto 0.8 X10*3/uL (1.2-4.9); Lymphocytes Percent Auto 17.9 % (20-40); Mean Corpuscular HGB Conc 34.5 g/dl (31.0-35.0); Mean Corpuscular Hemoglobin 30.3 pg (27.0-33.0); Mean Corpuscular Volume 87.9 fL (80.0-98.0); Mean Platelet Volume 9.5 fL (9.4-12.3); Monocytes Absolute Auto 0.1 X10*3/uL (0.1-1.2); Monocytes Percent Auto 2.8 % (2-11); Neutrophils Absolute Auto 3.7 x10*3/uL (2.0-8.3); Neutrophils Percent Auto 78.7 % (45-73); Platelet Count 241 X10*3/uL (160-400); Red Blood Count 4.45 X10*6/uL (4.20-5.50); Red Cell Distribution Width 13.2 % (11.0-16.0); White Blood Count 4.6 X10*3/uL (4.8-10.8)
[2021-10-03 06:12] LABS: Cholesterol 169 mg/dL; HDL Cholesterol 48 mg/dL; LDL Cholesterol Calculated 107 mg/dl; Triglycerides 74 mg/dL
[2021-10-03 06:16] LABS: Anion Gap 14 (12-20); Blood Urea Nitrogen 10 mg/dL (9-16); Carbon Dioxide 19 mmol/L (22-29); Chloride 106 mmol/L (96-108); Creatinine Clr Calc Pharmacy 152.9; Estimated Glomerular Filt Rate > 60; Glucose Random 248 mg/dL (60-115); Potassium 4.1 mmol/L (3.3-5.1); Sodium 135 mmol/L (135-145)
[2021-10-03 06:34] VITALS: BP 169/109; PULSE 103; RESP 16; O2SAT 98
--- NOTE | 2021-10-03 06:35 | PC.NURSE ---
numbness to the feet has stayed the same. improvement from the knees to ankles and improved balance.
--- NOTE | 2021-10-03 07:43 | PC.NURSE ---
pt up out of bed to restroom with assistance, pt denies pain at this time. no headache/dizziness reported. will continue to monitor.
[2021-10-03 07:50] LABS: HIV AB/AG Nonreactive (Nonreactive); HIV Num 1 0.05 S/CO (0.00-0.99)
[2021-10-03 07:58] LABS: Glucose, Whole Blood 197 mg/dL (60-115)
[2021-10-03] MEDS: Enoxaparin Sodium 40 MG/0.4 ML SYRINGE SUBCUT (08:09)
[2021-10-03] MEDS: Insulin Lispro 100 UNIT/ML 3 ML VIAL SUBCUT ×3 (08:12→21:29)
[2021-10-03 08:16] LABS: Syphilis Screen Nonreactive (Nonreactive)
--- NOTE | 2021-10-03 08:34 | PC.NURSE ---
pt up to ambulate with physical therapy.
[2021-10-03 09:04] LABS: Folate 10.3 ng/mL (> or = 4.0); Vitamin B12 225 pg/mL (200-900)
[2021-10-03 09:44] VITALS: BP 153/92; PULSE 96; RESP 18; TEMP 36.4; O2SAT 97
--- NOTE | 2021-10-03 10:06 | P.CNNE_ITS ---
History of Present Illness Data of Consult Service Date: 10/03/21 Primary Care Provider: Tenisha Burns NP HPI Reason for consult: Neuropathy 36 years old woman with underlying history of not well controlled diabetes, she stated that her recent A1c was 8, had a hemorrhoid surgery a week ago. Otherwise she denied any recent cold or flu-like illness during last couple of months. She was in usual state of health yesterday when she noted a numb feeling in her right leg below the knee. Next a the same feeling was noted in left leg. She started having difficulty walking and unsteadiness in came to hospital. There was no complaint of back pain or change in bowel bladder pattern. With initial suspicion of Guillain-Paradis syndrome she had multiple investigations including lumbar puncture, which revealed normal spinal fluid. Review of Systems Review of Systems: No recent cold or flu-like illness PMFSH Past Medical History Medical History Bleeding hemorrhoids delivery delivered Diabetes mellitus Hemorrhoids Rectal bleeding Family History Family History Mother Diabetes Hypertension Chronic asthma Father Diabetes Thyroid disease Surgical History Surgical History History of tubal ligation Social History Social History Alcohol intake: current Alcohol intake frequency: holidays/special occasions only Patient Tobacco Use Status: Never used Tobacco e-Cigarette/Vaping Use: Never Used Advance Directives: No Advance Directives Information Provided: No service: No Current occupational status: employed Current occupation: [employer] Current occupational exposures/hazards: No Cognitive needs: No Hearing needs: No Vision needs: No Meds Allergies Allergy/AdvReac Type Severity Reaction Status Date / Time sumatriptan Allergy Intermediate palpations Verified 10/02/21 14:13 and light headedness a rectal cream (fissure) she Allergy Severe tightness Uncoded 09/01/21 08:13 s in chest Active Medications: Current Medications Acetaminophen (Acetaminophen 325 Mg Tablet) 650 mg PO Q6H PRN PRN Reason: Pain, Mild (Pain Scale 1-3) Dextrose (Dextrose 50 % 25 Gm/50 Ml Vial) 25 gm IVPUSH Q15M PRN; Protocol PRN Reason: per Hypoglycemia Standing Ord. Enoxaparin Sodium (Enoxaparin Sodium 40 Mg/0.4 Ml Syringe) 40 mg SUBCUT Q24H REPLACED BY [facility] Last Admin: 10/03/21 08:09 Dose: 40 mg Documented by: Glucose (Glucose Gel 15 Gm Gel..Gram.) 15 gm PO Q15M PRN; Protocol PRN Reason: per Hypoglycemia Standing Ord. Insulin Human Lispro (Insulin Lispro 100 Unit/Ml 3 Ml Vial) 0 unit SUBCUT QIDACHS REPLACED BY [facility]; Protocol Last Admin: 10/03/21 08:12 Dose: 2 unit Documented by: Pharmacy Consult (Consult Rx Perform Med Rec) 1 each MISCELLANE ONCE PRN PRN Reason: Consult order Polyethylene Glycol (Polyethylene Glycol 3350 17 Gm Powd.Pack) 17 gm PO DAILY PRN PRN Reason: constipation Senna (Sennosides 8.6 Mg Tablet) 17.2 mg PO BEDTIME PRN PRN Reason: Constipation Sodium Chloride (0.9 % Sodium Chloride Flush 3 Ml Syringe) 3 ml IVFLUSH QSHIFT REPLACED BY [facility] Last Admin: 10/03/21 07:32 Dose: Not Given Documented by: Home Medications Medication Instructions Recorded Confirmed Last Taken Type lancets 28 gauge #100 ea 08/11/20 08/10/21 Unknown History clotrimazole-betamethasone 1 1 appl TOPICAL BID PRN 10/02/21 10/02/21 Unknown History %-0.05 % topical cream oxycodone-acetaminophen 5 mg-325 1 tab PO Q4H PRN 10/02/21 10/02/21 10/02/21 History mg tablet (Percocet) Physical Exam Vital Signs: Vital Signs: Last Vital Signs Temp 97.6 F 10/03/21 09:44 Pulse 96 10/03/21 09:44 Resp 18 10/03/21 09:44 BP 153/92 H 10/03/21 09:44 Pulse Ox 97 10/03/21 09:44 BMI result Body Mass Index 39.9 Neuro: Other: Moderately obese young woman in no acute distress. She was alert awake oriented with normal spontaneity of speech fluency comprehension and affect. Pupils were round reactive. Extraocular muscles were intact. Visual steiner are full. Face was symmetrical. There was no ptosis or facial weakness. Deep tendon reflexes were 2+ in arms and knees and absent in ankles with flexor plantars. Joint position sensation was absent in toes. She was able to stand up but had difficulty standing on toes and heels. Results Labs CBC & Chem 7: 10/03/21 05:32 10/03/21 05:32 Labs: Short CBC 10/02/21 10/03/21 Range/Units 18:53 05:32 WBC 7.2 4.6 L (4.8-10.8) X10*3/uL Hgb 14.4 13.5 (12.0-16.0) g/dl Hct 40.9 39.1 (37.0-47.0) % Plt Count 237 241 (160-400) X10*3/uL BMP 10/02/21 10/03/21 18:53 05:32 Sodium 138 135 Potassium 3.7 4.1 Chloride 106 106 Carbon Dioxide 20 L 19 L BUN 12 10 Creatinine 0.67 0.63 Calcium 9.0 9.0 Liver Function 10/02/21 Range/Units 18:53 Total Bilirubin 0.5 (0.0-1.0) mg/dL AST 17 (5-31) U/L ALT 27 (0-31) U/L Alkaline Phosphatase 59 (39-117) U/L Albumin 4.0 (3.5-5.0) g/dL Urine 10/02/21 Range/Units 22:32 Urine Color YELLOW Urine Appearance CLEAR Urine pH 6.5 (5.0-8.0) Ur Specific [place] 1.010 (1.005-1.025) Urine Protein NEG (NEG-TRACE) MG/DL Urine Glucose (UA) 100 H (NEG) MG/DL Noncontrast head CT did not reveal any significant abnormality. Lumbar spine CT was also reported okay. Microbiology Microbiology Results: Microbiology 10/02/21 22:32 Cerebrospinal Fluid Gram Stain - Final 10/02/21 22:32 Cerebrospinal Fluid CSF Examination - Final 10/02/21 22:32 Cerebrospinal Fluid Fluid Description - Final 10/02/21 22:32 Cerebrospinal Fluid CSF Culture - Preliminary No growth. Assessment and Plan (1) Peripheral neuropathy: Status: Acute 36 years old woman with not well-controlled diabetes had a hemorrhoid surgery a week ago and then developed numbness and weakness in legs below-knee. On examination her ankle reflexes were absent and sensations were diminished in feet. She had difficulty standing on heels and toes. Clinical exam was suggestive of peripheral neuropathy but it was not clear if these findings were due to acute or chronic neuropathy. Guillain-Paradis syndrome was a possibility but so far spinal fluid was negative. One could have acute demyelinating neuropathy without elevation of spinal fluid but because of atypical nature of her presentation, I suggest observing her for 24 hours. PT OT should be involved. Examination should be done tomorrow gain and EMG nerve conduction study as soon as possible to gather more data. If clinically or lab fuentes she worsens, treatment with IVIG can be considered. I would also recommend checking hemoglobin A1c. Other than that Lyme serology, vitamin B1, B12, folate, calcium and magnesium levels are recommended. Procedures Date of Service Date of Service: 10/03/21
--- NOTE | 2021-10-03 11:59 | HO.PM.IMPN ---
Subjective Subjective Date of Service: 10/03/21 Interval History: cc: le weakness interval history:unchanged Cardiovascular Cardiovascular: Reports no additional cardiovascular complaints Respiratory Respiratory: Reports no additional respiratory complaints Physical Exam Vital Signs: Vital Signs: Last Vital Signs Temp 97.6 F 10/03/21 09:44 Pulse 96 10/03/21 09:44 Resp 18 10/03/21 09:44 BP 153/92 H 10/03/21 09:44 Pulse Ox 97 10/03/21 09:44 BMI result Body Mass Index 39.9 General: AO X 3, no acute distress Resp: CTA bilateral, no accessory muscles used CVS: S1,S2,RRR GI: soft, non tender, non distended Neuro: b/l le weakness, alert Psych: appropriate affect, appropriate insight Objective Data Active Medications Acetaminophen (Acetaminophen 325 Mg Tablet) 650 mg PO Q6H PRN PRN Reason: Pain, Mild (Pain Scale 1-3) Dextrose (Dextrose 50 % 25 Gm/50 Ml Vial) 25 gm IVPUSH Q15M PRN; Protocol PRN Reason: per Hypoglycemia Standing Ord. Enoxaparin Sodium (Enoxaparin Sodium 40 Mg/0.4 Ml Syringe) 40 mg SUBCUT Q24H [facility] Last Admin: 10/03/21 08:09 Dose: 40 mg Documented by: YADIRA Glucose (Glucose Gel 15 Gm Gel..Gram.) 15 gm PO Q15M PRN; Protocol PRN Reason: per Hypoglycemia Standing Ord. Insulin Human Lispro (Insulin Lispro 100 Unit/Ml 3 Ml Vial) 0 unit SUBCUT QIDACHS [facility]; Protocol Last Admin: 10/03/21 08:12 Dose: 2 unit Documented by: YADIRA Pharmacy Consult (Consult Rx Perform Med Rec) 1 each MISCELLANE ONCE PRN PRN Reason: Consult order Polyethylene Glycol (Polyethylene Glycol 3350 17 Gm Powd.Pack) 17 gm PO DAILY PRN PRN Reason: constipation Senna (Sennosides 8.6 Mg Tablet) 17.2 mg PO BEDTIME PRN PRN Reason: Constipation Sodium Chloride (0.9 % Sodium Chloride Flush 3 Ml Syringe) 3 ml IVFLUSH QSHIFT [facility] Last Admin: 10/03/21 07:32 Dose: Not Given Documented by: YADIRA Non-Admin Reason: IV Running Labs CBC & Chem 7: 10/03/21 05:32 10/03/21 05:32 Labs: Laboratory Results - last 24 hr 10/02/21 10/02/21 10/02/21 18:52 18:52 18:52 MCV MCH MCHC RDW Plt Count MPV Immature Gran % (Auto) Neut % (Auto) Lymph % (Auto) Harper % (Auto) Eos % (Auto) Baso % (Auto) Lymph # (Auto) Harper # (Auto) Eos # (Auto) Baso # (Auto) Abs Immat Gran (auto) Absolute Neuts (auto) Absolute Nucleated RBC Nucleated RBC % (auto) ESR 19 PT 13.1 H INR 1.2 H Anion Gap Estim Creat Clear Calc Estimated GFR POC Glucose Random Glucose Calcium Magnesium Total Bilirubin AST ALT Alkaline Phosphatase C-Reactive Protein Total Protein Albumin Triglycerides Cholesterol LDL Cholesterol, Calc HDL Cholesterol Vitamin B12 Folate TSH Beta HCG, Quant Urine Color Urine Appearance Urine pH Ur Specific Cushing Urine Protein Urine Glucose (UA) Urine Ketones Urine Blood Urine Nitrite Ur Leukocyte Esterase Urine RBC Urine WBC Ur Squamous Epith Cells Urine Bacteria CSF Tube Number CSF Volume CSF Appearance CSF Color CSF WBC CSF RBC CSF Lymphocytes CSF Appearance (b) CSF Glucose CSF Total Protein T.pallidum Ab (EIA) A.phagocytophil DNA PCR Cancelled Babesia microti DNA PCR Cancelled Borrelia sp DNA (PCR) Cancelled Borrelia miyamotoi (PCR) Cancelled COVID-19 (JAYESH) COVID-19 Clin Com E.chaffeensis DNA (PCR) Cancelled HIV 1&2 Ab/P24 Ag 4thGn Tick-borne Disease PCR Cancelled 10/02/21 10/02/21 10/02/21 18:53 18:53 18:53 MCV 87.6 MCH 30.8 MCHC 35.2 H RDW 13.2 Plt Count 237 MPV 9.5 Immature Gran % (Auto) 0.4 Neut % (Auto) 63.7 Lymph % (Auto) 22.5 Harper % (Auto) 9.7 Eos % (Auto) 3.6 Baso % (Auto) 0.1 Lymph # (Auto) 1.6 Harper # (Auto) 0.7 Eos # (Auto) 0.3 Baso # (Auto) 0.0 Abs Immat Gran (auto) 0.03 Absolute Neuts (auto) 4.6 Absolute Nucleated RBC 0.000 Nucleated RBC % (auto) 0.0 ESR PT INR Anion Gap 16 Estim Creat Clear Calc 143.8 Estimated GFR > 60 POC Glucose Random Glucose 174 H Calcium 9.0 Magnesium 2.1 Total Bilirubin 0.5 AST 17 ALT 27 Alkaline Phosphatase 59 C-Reactive Protein 1.67 H Total Protein 7.0 Albumin 4.0 Triglycerides Cholesterol LDL Cholesterol, Calc HDL Cholesterol Vitamin B12 Folate TSH Beta HCG, Quant < 2 Urine Color Urine Appearance Urine pH Ur Specific Cushing Urine Protein Urine Glucose (UA) Urine Ketones Urine Blood Urine Nitrite Ur Leukocyte Esterase Urine RBC Urine WBC Ur Squamous Epith Cells Urine Bacteria CSF Tube Number CSF Volume CSF Appearance CSF Color CSF WBC CSF RBC CSF Lymphocytes CSF Appearance (b) CSF Glucose CSF Total Protein T.pallidum Ab (EIA) A.phagocytophil DNA PCR Babesia microti DNA PCR Borrelia sp DNA (PCR) Borrelia miyamotoi (PCR) COVID-19 (JAYESH) Negative COVID-19 Clin Com See Note E.chaffeensis DNA (PCR) HIV 1&2 Ab/P24 Ag 4thGn Tick-borne Disease PCR 10/02/21 10/02/21 10/02/21 22:32 22:32 22:32 MCV MCH MCHC RDW Plt Count MPV Immature Gran % (Auto) Neut % (Auto) Lymph % (Auto) Harper % (Auto) Eos % (Auto) Baso % (Auto) Lymph # (Auto) Harper # (Auto) Eos # (Auto) Baso # (Auto) Abs Immat Gran (auto) Absolute Neuts (auto) Absolute Nucleated RBC Nucleated RBC % (auto) ESR PT INR Anion Gap Estim Creat Clear Calc Estimated GFR POC Glucose Random Glucose Calcium Magnesium Total Bilirubin AST ALT Alkaline Phosphatase C-Reactive Protein Total Protein Albumin Triglycerides Cholesterol LDL Cholesterol, Calc HDL Cholesterol Vitamin B12 Folate TSH Beta HCG, Quant Urine Color YELLOW Urine Appearance CLEAR Urine pH 6.5 Ur Specific Cushing 1.010 Urine Protein NEG Urine Glucose (UA) 100 H Urine Ketones 40 Urine Blood 3+ H Urine Nitrite NEG Ur Leukocyte Esterase NEG Urine RBC 1-4 Urine WBC 1-4 Ur Squamous Epith Cells TRACE Urine Bacteria TRACE CSF Tube Number 1 4 CSF Volume 1.0 CSF Appearance CLEAR CSF Color COLORLESS CSF WBC 4 CSF RBC 0 CSF Lymphocytes 100 CSF Appearance (b) Clear, Colorless CSF Glucose 104 CSF Total Protein 28.7 T.pallidum Ab (EIA) A.phagocytophil DNA PCR Babesia microti DNA PCR Borrelia sp DNA (PCR) Borrelia miyamotoi (PCR) COVID-19 (JAYESH) COVID-19 Clin Com E.chaffeensis DNA (PCR) HIV 1&2 Ab/P24 Ag 4thGn Tick-borne Disease PCR 10/03/21 10/03/21 10/03/21 05:32 05:32 05:32 MCV 87.9 MCH 30.3 MCHC 34.5 RDW 13.2 Plt Count 241 MPV 9.5 Immature Gran % (Auto) 0.2 Neut % (Auto) 78.7 H Lymph % (Auto) 17.9 L Harper % (Auto) 2.8 Eos % (Auto) 0.2 Baso % (Auto) 0.2 Lymph # (Auto) 0.8 L Harper # (Auto) 0.1 Eos # (Auto) 0.0 Baso # (Auto) 0.0 Abs Immat Gran (auto) 0.01 Absolute Neuts (auto) 3.7 Absolute Nucleated RBC 0.000 Nucleated RBC % (auto) 0.0 ESR PT INR Anion Gap 14 Estim Creat Clear Calc 152.9 Estimated GFR > 60 POC Glucose Random Glucose 248 H Calcium 9.0 Magnesium Total Bilirubin AST ALT Alkaline Phosphatase C-Reactive Protein Total Protein Albumin Triglycerides 74 Cholesterol 169 LDL Cholesterol, Calc 107 HDL Cholesterol 48 Vitamin B12 Folate TSH Beta HCG, Quant Urine Color Urine Appearance Urine pH Ur Specific Cushing Urine Protein Urine Glucose (UA) Urine Ketones Urine Blood Urine Nitrite Ur Leukocyte Esterase Urine RBC Urine WBC Ur Squamous Epith Cells Urine Bacteria CSF Tube Number CSF Volume CSF Appearance CSF Color CSF WBC CSF RBC CSF Lymphocytes CSF Appearance (b) CSF Glucose CSF Total Protein T.pallidum Ab (EIA) A.phagocytophil DNA PCR Babesia microti DNA PCR Borrelia sp DNA (PCR) Borrelia miyamotoi (PCR) COVID-19 (JAYESH) COVID-19 Clin Com E.chaffeensis DNA (PCR) HIV 1&2 Ab/P24 Ag 4thGn Tick-borne Disease PCR 10/03/21 10/03/21 10/03/21 05:32 05:32 05:32 MCV MCH MCHC RDW Plt Count MPV Immature Gran % (Auto) Neut % (Auto) Lymph % (Auto) Harper % (Auto) Eos % (Auto) Baso % (Auto) Lymph # (Auto) Harper # (Auto) Eos # (Auto) Baso # (Auto) Abs Immat Gran (auto) Absolute Neuts (auto) Absolute Nucleated RBC Nucleated RBC % (auto) ESR PT INR Anion Gap Estim Creat Clear Calc Estimated GFR POC Glucose Random Glucose Calcium Magnesium Total Bilirubin AST ALT Alkaline Phosphatase C-Reactive Protein Total Protein Albumin Triglycerides Cholesterol LDL Cholesterol, Calc HDL Cholesterol Vitamin B12 225 Folate 10.3 TSH 0.40 Beta HCG, Quant Urine Color Urine Appearance Urine pH Ur Specific Cushing Urine Protein Urine Glucose (UA) Urine Ketones Urine Blood Urine Nitrite Ur Leukocyte Esterase Urine RBC Urine WBC Ur Squamous Epith Cells Urine Bacteria CSF Tube Number CSF Volume CSF Appearance CSF Color CSF WBC CSF RBC CSF Lymphocytes CSF Appearance (b) CSF Glucose CSF Total Protein T.pallidum Ab (EIA) Nonreactive A.phagocytophil DNA PCR Babesia microti DNA PCR Borrelia sp DNA (PCR) Borrelia miyamotoi (PCR) COVID-19 (JAYESH) COVID-19 Clin Com E.chaffeensis DNA (PCR) HIV 1&2 Ab/P24 Ag 4thGn Tick-borne Disease PCR 10/03/21 10/03/21 05:32 07:53 MCV MCH MCHC RDW Plt Count MPV Immature Gran % (Auto) Neut % (Auto) Lymph % (Auto) Harper % (Auto) Eos % (Auto) Baso % (Auto) Lymph # (Auto) Harper # (Auto) Eos # (Auto) Baso # (Auto) Abs Immat Gran (auto) Absolute Neuts (auto) Absolute Nucleated RBC Nucleated RBC % (auto) ESR PT INR Anion Gap Estim Creat Clear Calc Estimated GFR POC Glucose 197 H Random Glucose Calcium Magnesium Total Bilirubin AST ALT Alkaline Phosphatase C-Reactive Protein Total Protein Albumin Triglycerides Cholesterol LDL Cholesterol, Calc HDL Cholesterol Vitamin B12 Folate TSH Beta HCG, Quant Urine Color Urine Appearance Urine pH Ur Specific Cushing Urine Protein Urine Glucose (UA) Urine Ketones Urine Blood Urine Nitrite Ur Leukocyte Esterase Urine RBC Urine WBC Ur Squamous Epith Cells Urine Bacteria CSF Tube Number CSF Volume CSF Appearance CSF Color CSF WBC CSF RBC CSF Lymphocytes CSF Appearance (b) CSF Glucose CSF Total Protein T.pallidum Ab (EIA) A.phagocytophil DNA PCR Babesia microti DNA PCR Borrelia sp DNA (PCR) Borrelia miyamotoi (PCR) COVID-19 (JAYESH) COVID-19 Clin Com E.chaffeensis DNA (PCR) HIV 1&2 Ab/P24 Ag 4thGn Nonreactive Tick-borne Disease PCR Microbiology Microbiology Results: Microbiology 03/20/22 22:32 Gram Stain - Final Cerebrospinal Fluid CSF Examination - Final Fluid Description - Final CSF Culture - Preliminary No growth. Assessment and Plan (1) Peripheral neuropathy: Status: Acute Plan 36F presented with le weakness and numbness Lower extremity weakness and numbness Diabetic neuropathy versus Guillain-Maria Stein Continue to monitor PT/OT Diabetes Insulin Monitor fingersticks Obesity Weight loss Elevated blood pressures Continue monitor for now Borderline B12 deficiency unlikely to be cause of symptoms but will start supplement Quality Stroke Does the patient have a stroke diagnosis?: No VTE Prior VTE?: No VTE Risk Level:: Medical - moderate - high VTE Device Contraindication: Treatment Not Indicated VTE Drug Contraindication: N/A - Med Ordered
[2021-10-03 12:07] LABS: Glucose, Whole Blood 157 mg/dL (60-115)
--- NOTE | 2021-10-03 12:24 | MHC.CM.PN ---
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
--- NOTE | 2021-10-03 13:16 | PC.NURSE ---
pt requesting Sitz Bath. Commode with warm water given. pt up to use rest room with assistance. pt resting quietly, no complaints
[2021-10-03 18:19] LABS: Glucose, Whole Blood 218 mg/dL (60-115)
[2021-10-03] MEDS: Acetaminophen 325 MG TABLET 650 MG PO (18:25)
[2021-10-03] MEDS: 0.9 % Sodium Chloride Flush 3 ML SYRINGE IVFLUSH (18:28)
[2021-10-03 20:48] VITALS: BP 130/88; PULSE 97; RESP 17; TEMP 36.8; O2SAT 98
[2021-10-03 20:59] LABS: Glucose, Whole Blood 190 mg/dL (60-115)
[2021-10-03] MEDS: Zolpidem Tartrate 5 MG TABLET PO (21:29)
--- NOTE | 2021-10-03 22:44 | PC.NURSE ---
This rn took over patient's care at 1900, patient is alert and oriented x3. Patient reports ambulating to bathroom with assistance, reports had small, hard bm with some discomfort; reports drinking miralax. Patient reports still with numbness feeling to bilateral below knee, but reports it is less now than was during days. L/s clear, vital signs stable, medicated per mar.
--- NOTE | 2021-10-03 23:16 | PC.NURSE ---
Patient to be transported to overflow ed. Report given to overflow ed RNMildred.
--- NOTE | 2021-10-04 00:12 | PC.NURSE ---
Pt arrived from ED to ED ovrflow around 2330. Pt A&OX4, pleasant and cooperative. Speech is clear and appropriate. LS-CTA. No cough and no sob. Telemetry SR 90's. BS+. Pt states she didn't each much dinner but doesn't want to eat at this time. Pt c/o pain to rectum-ice pack applied with some relief until Tylenol is due. PP+. +CMS to bilateral feet. +pedal foot pumps. Pt resting quietly with eyes closed. Will continue to monitor.
[2021-10-04] MEDS: Acetaminophen 325 MG TABLET 650 MG PO (00:50)
[2021-10-04] MEDS: 0.9 % Sodium Chloride Flush 3 ML SYRINGE IVFLUSH (00:51)
[2021-10-04 04:08] VITALS: BP 135/90; PULSE 110; RESP 14; O2SAT 99
--- NOTE | 2021-10-04 05:56 | PC.NURSE ---
Pt awake and washing up in bathroom. Ambulating with a steady gait. Pt states the numbness from her knee to ankle is better but she is numb on the bottom of her foot. Pt requesting Ibuprohen 600mg prn for rectal pain. Dr Rust notified. Pt not complaining of pain at present time.
[2021-10-04 07:32] VITALS: BP 156/105; PULSE 102; RESP 13; TEMP 37; O2SAT 96
[2021-10-04 08:11] LABS: Glucose, Whole Blood 217 mg/dL (60-115)
[2021-10-04] MEDS: Enoxaparin Sodium 40 MG/0.4 ML SYRINGE SUBCUT (08:15)
[2021-10-04] MEDS: Insulin Lispro 100 UNIT/ML 3 ML VIAL SUBCUT (08:15)
[2021-10-04] MEDS: Cyanocobalamin (Vitamin B-12) 1,000 MCG TABLET 1000 MCG PO (08:15)
--- NOTE | 2021-10-04 10:15 | PC.NURSE ---
Pt is A&Ox4, LCA, Pt c/o rectal pain only r/t recent surgery. Ambulated with PT with slow but steady gait, neuros are intact at this time. +pulses, call comer within reach. Will continue to monitor.
--- NOTE | 2021-10-04 12:26 | PM.DS ---
DS: Providers Provider Date of Service: 10/04/21 Date of admission: 10/02/21 23:33 Primary care physician: Tenisha Burns, INTERNAL AUDIT MANAGER Consults: 10/02/21 23:34 Consult to Neurology Routine Consulting Provider: Gemini Wilkinson Reason for consultation: b/l LE weakness; ?GBS DS: Diagnosis Discharge Diagnosis (1) Peripheral neuropathy: Status: Acute DS: Summary Hospital Course Hospital Course: from initial hpi: Chief Complaint: bl leg weakness ?36-year-old female with a past medical history of diabetes, hemorrhoids status post hemorrhoidectomy on 09/27/2021; presented to the hospital today with a chief complaint of bilateral leg weakness/ numbness.? patient reported that since last sunday she developed bilateral leg weakness more on the right leg and bilateral leg numbness more on the right leg; which have been gradually worsening; she felt unsteady; denies any falls or trauma.? denies any headaches or blurry visions.? denies any numbness or weakness in upper extremities.? denies any low back pain.denies any stool incontinence or urinary retention.? ? patient reported that few days ago she had like? nasal congestion/runny nose -contracted from her daughter? who had uri before. ?denies any gi gu symptoms.? patient reports that she was not feeling ground when trying to walk and lately she was dragging her right lower extremity in order to walk.? has been on study. denies any water contamination, tick bites, concerns for hiv. review of all other systems is negative except mentioned above er course: per er team patient on presentation noted to have bilateral leg decreased sensation, decreased strength in bilateral lower extremities -1/5; absent knee reflexes.? concern for denzel barre syndrome.? ct head and lumbar spine ct showed no acute findings.? lp was done which showed no albuminocytologic dissociation. ? initially started on ivig.? discussed with neurology who suggested to stop iv agent admitted to the hospital for further management. 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 She was seen by Neurology felt that due to normal protein in the CSF, Guillain-Washington was less likely although not ruled out, we were hesitant to start IVIG without a definitive diagnosis, patient was monitored for another 24 hours and symptoms slightly improved, but did not get worse, therefore, patient will be discharged home and will continue to monitor symptoms for worsening, if she does start to have significant progression that may indicate more Guillain-Washington that would require admission for IVIG. Alternatively, this could all be peripheral neuropathy due to diabetes, titer diabetes control is recommended, as well as weight loss for morbid obesity. Patient was noted to have borderline B12 deficiency, though, this is not felt to be contributors symptoms she has been started on B12 supplement. Patient also noted to have elevated blood pressures, she has not been started on blood pressure medications at this time, this should be monitored as outpatient and if persistently high medications should be considered. Time Spent with Patient Time attestation: Total time spent providing and/or coordinating discharge services: Discharge coordination time: Greater than 30 minutes Quality: Stroke Does the patient have a stroke diagnosis?: No Physical Exam Vital Signs: Vital Signs: Last Vital Signs Temp 98.6 F 10/04/21 07:32 Pulse 102 H 10/04/21 07:32 Resp 13 10/04/21 07:32 BP 156/105 H 10/04/21 07:32 Pulse Ox 96 10/04/21 07:32 BMI result Body Mass Index 39.9 General: AO X 3, no acute distress Resp: CTA bilateral, no accessory muscles used CVS: S1,S2,RRR GI: soft, non tender, non distended Neuro: improved numbness, decreased reflexes Psych: appropriate affect, appropriate insight DS: Data Data Completed and Pending Labs on day of discharge: Laboratory Results - last 24 hr 10/03/21 10/03/21 10/04/21 18:13 20:55 07:30 POC Glucose 218 H 190 H 217 H Preliminary micro results at discharge 10/02/21 22:32 CSF Culture - Preliminary Cerebrospinal Fluid No growth after 1 day Discharge Plan Discharge Patient Disposition: Home, Self-Care Discharge Diagnosis: peripheral neuropathy Referrals: Tenisha Burns NP [Primary Care Provider] - 1 Week Discharge Medications: New cyanocobalamin (vitamin B-12) [Vitamin B-12] 1,000 mcg Tablet 1,000 mcg PO DAILY Qty: 30 0RF Continued oxycodone-acetaminophen [Percocet] 5-325 mg tablet 1 tab PO Q4H PRN (Reason: pain,,severe) 0RF clotrimazole-betamethasone 1-0.05 % cream 1 appl topical BID PRN (Reason: Rash) 0RF docusate sodium [Colace] 100 mg capsule 100 mg PO BID Qty: 60 2RF ibuprofen 600 mg tablet 600 mg PO Q6H PRN (Reason: pain) Qty: 30 0RF (DME) lancets 28 gauge misc See Rx Instructions lancet topical TID Qty: 100 0RF Rx Instructions: As directed (DME) FreeStyle Lite Strips Strip See Rx Instructions .ROUTE .MEDSUPPLY Qty: 100 5RF Rx Instructions: glucose monitoring twice a day and prn for symtpoms Discharge Orders: Discharge Order (Routine); Ordered 10/04/21 Ordered By: Christiano Neves Diet: advance to usual diet Activity on Discharge: As tolerated Stand Alone Forms: Patient Portal Discharge page Care Plan Goals: recovery Health Concerns: neuropathy Plan of Treatment: monitor your symptoms, follow up with neuro. will start b12 supplement for borderline defeciency, though i do not think it is the cause of your symptoms Assessment: see above
[2021-10-04] MEDS: Ibuprofen 600 MG TABLET PO (12:49)
[2021-10-04 13:11] LABS: Glucose, Whole Blood 188 mg/dL (60-115)
--- NOTE | 2021-10-04 16:20 | MHC.CM.PN ---
Addendum entered by Eliana Conrad 10/07/21 09:53: VNA has still not been found. Patient made aware. funeral assistant will notify PCP's office to continue the search for VNA. Original Note: Received notification that patient will be discharged today. Will need VNA for jail, physical therapy and occupational therapy. [facility] is booked for patients this week. Patient aware referral will be broadcasted in [email or web address] and T/W will call her with agency name and contact info. Continue to monitor for d/c needs.
[2021-10-05 15:07] LABS: Anti Nuclear Antibody Screen NEGATIVE (NEGATIVE)
[2021-10-05 17:36] LABS: A. Phagocytphilium DNA,RT-PCR NOT DETECTED (NOT DETECTED); Babesia Microti DNA, RT-PCR NOT DETECTED (NOT DETECTED); Borrelia Miyamotoi,DNA RT-PCR NOT DETECTED (NOT DETECTED); E.Chaffeensis DNA RT-PCR NOT DETECTED (NOT DETECTED); Lyme(Borrelia ssp)DNA RT-PCR NOT DETECTED (NOT DETECTED); Source-Tick borne disease BLOOD
[2021-10-05 17:36] LABS: Lyme (B. burgdorferi) PCR NOT DETECTED (NOT DETECTED)
[2021-10-07 11:27] LABS: Vitamin B1 7 nmol/L (8-30)
--- NOTE | 2021-10-10 08:48 | MHC.CM.PN ---
Received telephone call from patient stating she doesn't feel like she needs home VNA at this time. Requesting outpatient PT/OT. construction management assistant will reach out to PCP's office to facilitate.
== END 2021-10-04 14:03 | disposition home or self-care (01) | DRG 48 ==
LOC: HO.ED 23:15 → HO.EDOVER 23:48
PROVIDERS: Physician Assistant; Admitting Provider Hospitalist; Emergency Provider Emergency Medicine; PCP Hospitalist; Visit Provider Internal Medicine
DX: E11.42 Type 2 diabetes mellitus with diabetic polyneuropathy (principal); G61.0 Guillain-Barre syndrome; E66.01 Morbid (severe) obesity due to excess calories; E53.8 Deficiency of other specified B group vitamins; Z68.39 Body mass index [BMI] 39.0-39.9, adult; Z20.822 Contact with and (suspected) exposure to COVID-19; Z79.899 Other long term (current) drug therapy
CPT/HCPCS: 36415; 70450; 72132; 80048; 80053; 80061; 81001; 82607; 82746; 82945; 82947; 83735; 84157; 84425; 84443; 84702; 85025; 85610; 85652; 86038; 86039; 86140; 86780; 87015; 87070; 87205; 87389; 87476; 87635; 87798; 87801; 89051; 93005; 97116; 97162; 97165; 97530; 99219; 99285; J1200; J1650; J2270; J2920; Q9967

== ENCOUNTER → 2021-10-10 11:22 | Outpatient (BNVA) | payer OTHER, SELFPAY | PROVIDERS: PCP Hospitalist; Referring Provider Hospitalist; Visit Provider Surgery | DX: Z09 Encounter for follow-up examination after completed treatment for conditions other than malignant neoplasm (principal); Z87.19 Personal history of other diseases of the digestive system ==

== ENCOUNTER 2021-10-19 10:48 | Outpatient (RCR) | payer OTHER, SELFPAY ==
--- NOTE | 2021-10-19 12:58 | MHC.OT.OEV ---
[address] [phone] F: [phone] Occupational Therapy Evaluation Diagnosis: Polyneuropathy Date of Onset: 09/27/21 Date of Surgery: 10/02/21 Attending Provider: Tenisha Burns NP Prescribed Treatment: Eval and treat MD Follow Up Appointment: History of Current Condition: Pt reports noticing bilateral lower legs and feet numbness a day after hemoroidectomy Seen in ER on 10/02/21. CT of head, lumbar spine ..all testing normal. Referred for PT,OT and neurology . 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 Time with family Morning beach Body ex Living Situation, Family and/or Social Support: . 11 and 16 yo children one dog Current Level of Function and Occupation Self Care, Employment, Leisure: Cane use out of the house Pt on medical leave Leaning on wall with LB clothing adjustments Hand rails in shower. Indep in/out and showering with use of safety bar Okay on/off toilet Support counter top with standing for styling hair or will sit in front of daughters vanity. Leaning on kit counter top with food prep or seated Family lift and carry heavy objects and with heavy homemaking due to dec standing /dynamic balance. Leg cramps when waking up and trying to stand and with sittings more than 1 hour Can carry light things with support of cane. Sleep: Okay. Slow to stand due to weakness, numbness Driving: Not now , due to weak ankles Vision: WNL Balance: Impaired . Standing dynamic fair and fair- with ambulation. Walking with cane fair Pain Assessment Pain Score: 6 Pain Scale Used: Numeric (0 - 10) Pain Location and Description: 2-6 bilateral calves stabbing pain. Ankles and feet primarily numbness, pins and needles . Occassional cramps Aggravating Factors: Prolonged sitting or standing. ...> 1 hr Alleviating Factors: Skin and Soft Tissue Assessment Skin and Soft Tissue: Comments: No abnormalities noted Nerve assessment Ulnar Nerve: WNL Median Nerve: WNL Radial Nerve: WNL Comments: Bilateral UE WNL Sensory Assessment Temperature: Light Touch: WNL Proprioception: Vibration: Comments: Bilateral UE, Feet not assessed. Edema Assessment Upper Extremity: WNL Lower Extremity: Comments: Dexterity Assessment Dexterity: WNL Comments: Special Tests Comments: AROM(PROM) Strength Cervical Cervical Flexion: Cervical Extension: Cervical Lateral Flexion: Cervical Rotation: Comments: WNL Shoulder Flexion: Extension: Abduction: Internal Rotation: External Rotation: Comments: WNl Flexion: Extension: Abduction: Internal Rotation: External Rotation: Comments: WNL Elbow Flexion: Extension: Pronation: Supination: Comments: WNL Flexion: Extension: Pronation: Supination: Comments: WNL Wrist Flexion: Extension: Ulnar Deviation: Radial Deviation: Comments: WNL Flexion: Extension: Ulnar Deviation: Radial Deviation: Comments: WNL Thumb Thumb CMC Flexion: Thumb MCP Flexion: Thumb IP Flexion: Radial Abduction: Palmar Abduction: [place] (Kapandji 0-10): Comments: WNL Digits Index MCP: PIP: DIP: Long MCP: PIP: DIP: Ring MCP: PIP: DIP: Small MCP: PIP: DIP: Comments: WNL Gross Grasp: Lateral Pinch: Two-Point Pinch: Three-Jaw Glenn: Comments: WNL Patient Education Primary Language: Turkish Smelter Operator Required: No Current Knowledge: Understands information with skills for self-management Teaching Method: Verbal Education Needs Identified on Evaluation: How did patient/family demonstrate learning? Patient verbalizes Barriers to Learning: None Readiness for Learning: Accepting Who was educated? Patient Comments: Plan of Care Assessment: Pt is a 36 yo female with onset of bilateral LE neuropathy one day po hemorroidectomy3 wks ago. 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 I recommended an optional standing desk to alternate between sitting and standing . She is scheduled with neurology on 10/26/21 and PT eval on 10/28/21. Skilled OT is not needed at this time STG Duration: NA Short Term Goals: NA LTG Duration: Brand Advocate Goals: NA Frequency and Duration: The patient will be seen NA Treatment Plan: Electronically Signed By: Irma Santacruz OT CHT CLT Reviewed/agree with student documentation: N/A Therapist: Please sign and return to therapist, Thank you for your referral.
== END 2021-10-19 11:00 | disposition home or self-care (01) ==
LOC: HO.OT 10:48
PROVIDERS: Visit Provider Hospitalist
DX: G62.9 Polyneuropathy, unspecified (principal); R20.0 Anesthesia of skin; R29.898 Other symptoms and signs involving the musculoskeletal system
CPT/HCPCS: 97165